=== PATIENT | female | born 1980 ===

== ENCOUNTER 2017-01-14 14:15 | Emergency (ER) | payer OTHER ==
[2017-01-14 14:28] VITALS: RESP 18; TEMP 98
[2017-01-14] MEDS ORDERED: Oxycodone/Acetaminophen 5/325 mg Tab PO STA (14:46)
[2017-01-14] MEDS ORDERED: Oxycodone/Acetaminophen 5/325 mg Tab ONE (14:59)
--- NOTE | 2017-01-14 15:17 | C.PDOC ---
History Of Present Illness 36-year-old female, presents to the emergency department with complaints of chest pain. Patient states she sustained an injury to her right chest wall, after falling and striking it on the bathtub, while changing her shower curtains yesterday. Patient took two Advils, with minimal relief. Denies loss of consciousness or any other injuries. No shortness of breath, nausea/vomiting , or any other associated symptoms. No other complaints at this time. Time Seen by Provider: 01/14/17 14:42 Chief Complaint (Nursing): Rib Injury History Per: Patient History/Exam Limitations: no limitations Past Medical History Reviewed: Historical Data, Nursing Documentation, Vital Signs Vital Signs: Last Vital Signs Temp 98 F 01/14/17 14:24 Pulse 71 01/14/17 15:42 Resp 18 01/14/17 15:42 BP 110/62 01/14/17 15:42 Pulse Ox 100 01/14/17 15:49 Family History: States: No Known Family Hx - Social History Hx Alcohol Use: No Hx Substance Use: No - Immunization History Hx Tetanus Toxoid Vaccination: No Hx Influenza Vaccination: No Hx Pneumococcal Vaccination: No Review Of Systems Except As Marked, All Systems Reviewed And Found Negative. Constitutional: Negative for: Fever, Chills Cardiovascular: Positive for: Chest Pain Respiratory: Negative for: Shortness of Breath Gastrointestinal: Negative for: Nausea, Vomiting Musculoskeletal: Negative for: Back Pain Neurological: Negative for: Weakness, Numbness Physical Exam - Physical Exam Appears: Non-toxic, No Acute Distress Skin: Warm, Dry, No Rash Head: Atraumatic, Normacephalic Eye(s): bilateral: Normal Inspection, PERRL Nose: Normal Oral Mucosa: Moist Lips: Normal Appearing Neck: Normal ROM Chest: Symmetrical, No Deformity, Tenderness (anterior lateral wall, T10-T12) Cardiovascular: Rhythm Regular, No Murmur Respiratory: Normal Breath Sounds, No Accessory Muscle Use (equal breath sounds bilaterally) Extremity: Normal ROM Neurological/Psych: Oriented x3, Normal Speech (no focal deficit) ED Course And Treatment O2 Sat by Pulse Oximetry: 100 - Radiology CXR: Interpreted by Me, Viewed By Me CXR Interpretation: Yes: No Acute Disease. No: Fracture, Pnemothorax Medical Decision Making Medical Decision Making: Impression: 36y/o F comes in w/ chest wall injury Plan: * X-Ray: Chest and ribs * Percocet * POC preg * Reassess and Disposition Disposition - Disposition Disposition: HOME/ ROUTINE Disposition Time: 15:30 Condition: IMPROVED Additional Instructions: follow up with your doctor in 2 days call to make an appointment take pain medication as needed return to ER if symptoms worsens or progress Prescriptions: Naproxen [Naprosyn] 500 mg PO BID PRN #16 tablet PRN Reason: Pain, Moderate (4-7) oxyCODONE/Acetaminophen [Percocet 5/325 mg Tab] 1 ea PO TID PRN #12 tab PRN Reason: Pain, Severe (8-10) Forms: Gen Discharge Inst Mongolian, [facility] [employer] [facility] ([place]ican) - Clinical Impression Clinical Impression: Contusion of rib - Scribe Statement The provider has reviewed the documentation as recorded by the Scribe (David Tucker) All medical record entries made by the Scribe were at my direction and personally dictated by me. I have reviewed the chart and agree that the record accurately reflects my personal performance of the history, physical exam, medical decision making, and the department course for this patient. I have also personally directed, reviewed, and agree with the discharge instructions and disposition.
[2017-01-14 15:43] VITALS: BP 110/62; PULSE 71
[2017-01-14 15:47] VITALS: O2SAT 100
--- NOTE | 2017-01-14 17:57 | RAD ---
PROCEDURE: Radiographs of the Chest and Right Ribs. HISTORY: fall COMPARISON: None available. TECHNIQUE: Frontal radiograph of the chest and multiple oblique radiographs of the right ribs were obtained. FINDINGS: RIGHT RIBS: No fracture or focal lesion visualized. LUNGS: Clear. PLEURA: No pneumothorax or pleural fluid. CARDIOVASCULAR: Normal sized heart. No pulmonary vascular congestion. OTHER FINDINGS: None. IMPRESSION: No definitive evidence of acute displaced right-sided rib fracture. . No acute cardiopulmonary disease.
== END 2017-01-14 15:43 | disposition home or self-care (01) ==
LOC: C.ER 14:15
DX: S20.211A Contusion of right front wall of thorax, initial encounter (principal); W18.30XA Fall on same level, unspecified, initial encounter; Y93.89 Activity, other specified; Y92.002 Bathroom of unspecified non-institutional (private) residence as the place of occurrence of the external cause